=== PATIENT | female | born 1980 | race Caucasian/White ===

== ENCOUNTER 2016-06-08 17:48 | Emergency (ER) | payer OTHER ==
[2016-06-08 18:39] LABS: HCG,QUALITATIVE URINE NEGATIVE
[2016-06-08] MEDS ORDERED: KETOROLAC TROMETHAMINE 60 MG/2 ML VIAL ONE (19:22)
== END 2016-06-08 19:44 | disposition home or self-care (01) ==
LOC: ED 17:48
DX: N94.6 Dysmenorrhea, unspecified (principal)
CPT/HCPCS: 81025; 99283 ×2; 96372; J1885